=== PATIENT | female | born 1995 | race Caucasian/White ===

== ENCOUNTER 2017-05-11 04:56 | Inpatient (IN) ==
[2017-05-11 02:47] LABS: Amphetamine Screen,Urine Negative ng/mL (Cutoff=1000); Barbiturate Screen,Urine Negative ng/mL (Cutoff=200); Benzodiazepines Screen,Urine Negative ng/mL (Cutoff=200); Cannabinoid Screen,Urine Positive ng/mL (Cutoff = 50); Cocaine Screen,Urine Negative ng/mL (Cutoff= 300); Opiate Screen,Urine Negative ng/mL (Cutoff=300); Phencyclidine Screen,Urine Negative ng/mL (Cutoff=25)
[2017-05-11 02:50] LABS: Basophils % 0.2 %; Eosinophils # 0.4 K/mcL (0.0-0.6); Hematocrit 30.5 % (35.3-44.9); Hemoglobin 9.5 g/dL (11.5-15.4); Lymphocytes # 2.7 K/mcL (0.6-4.6); Lymphocytes % 15.3 %; Mean Corpuscular HGB Conc 31.1 g/dL (31.6-35.5); Mean Corpuscular Hemoglobin 26.7 pg (28.0-33.3); Mean Corpuscular Volume 85.7 fL (83.0-100.0); Mean Platelet Volume 9.4 fL (9.4-12.4); Monocytes # 1.3 K/mcL (0.0-1.3); Monocytes % 7.4 %; Neutrophils # 12.8 K/mcL (1.6-8.9); Platelet Count 350 K/mcL (140-400); Red Blood Count 3.56 M/mcL (3.82-4.97); Red Cell Distribution Width 13.7 % (11.5-14.5); Segmented Neutrophils % 74.1 %
--- NOTE | 2017-05-11 04:17 | OB/GYN History & Physical ---
Date of Encounter: 05/11/17 Time of Encounter: 04:14 Assessment and Plan (1) 39 weeks gestation of Current visit: Yes Status: Acute admitted for delivery (2) Spontaneous rupture of amniotic membranes Current visit: Yes Status: Acute SROM at 0140 clear fluid (3) Marijuana use Current visit: Yes Status: Acute cord stat testing (4) Tobacco use affecting in third trimester, antepartum Current visit: Yes Status: Acute smoking cessation discussed with patient (5) Two vessel umbilical cord in edouard , antepartum Current visit: Yes Status: Acute EFM monitoring History of Present Illness Chief complaint: SROM at 39 weeks gestation HPI: Ms. Florentino is a 21 year old female @ 39w0d presents to labor and delivery with complaints of SROM at 0140. Patient reports clear fluid and +FM. Patient also reports irregular contractions. Patient grossly rupture with + Nitrazine per RN. SVE 2/80/-1. Blood type: B+ Rubella:Non-immune Hep B:Nonreactive RPR:Negative GBS:Negative Past Med Surg Social Fam HX - Past Medical History Source: patient Medical history: no medical history, other Psychiatric history: no psych history - Past Surgical History Surgical History: no surgical history - Social History Smoking Status: Current every day smoker Packs per day: 1 Smokeless Tobacco Status: No Alcohol use: none Drug use: cocaine, marijuana Current living situation: Home - Independent Activity Level: Independent ambulation Recent Out of Country Travel Within the Last 8 Weeks: No Exposure or Possible Exposure to Illness During Travel: No - Family History Mother Age: 52 Living Status: Still Living Hx Family Cardiac Disorders: Yes (htn) Hx Family Respiratory Disorders: Yes (copd) Hx Family Cancer: Yes (colon cancer) Hx Family GI Disorders: No Hx Family Genitourinary Disorders: No Hx Family Endocrine Disorder: Yes (diabetic) Hx Family Musculoskeletal Disorders: No Hx Family Neuromuscular Disorders: No Hx Family Neurologic Disorders: No Hx Family HEENT Disorders: No Hx Family Autoimmune Disorders: Yes (lupus) Hx Family Reproductive Disorders: No Hx Family Psychosocial Disorders: No Hx Family Medical Disorders: No Obstetrical History - Pregnancies : 2 Para: 1 Term: 1 : 0 Ab's: 0 Livin Medications and Allergies No Known Home Drugs 05/11/17 [History] 3 Allergy/AdvReac Type Severity Reaction Status Date / Time No Known Allergies Allergy Verified 01/25/17 16:25 Review of System OB - Constitutional Constitutional ROS IM: no chills, no fever(s), no headache(s) - Cardiovascular Cardiovascular: no chest pain, no leg edema, no palpitations, no pedal edema, no syncope - Respiratory Respiratory: no cough - Gastrointestinal Gastrointestinal: no abdominal pain, no cramping, no diarrhea, no heartburn, no nausea, no vomiting - Genitourinary Genitourinary: vaginal discharge (per HPI), no abnormal vaginal bleeding, no dysuria, no flank pain, no pelvic pain, no urinary frequency, no urinary urgency , no vaginal odor, no vaginal pruritis Exam - Constitutional Constitutional: well developed, well nourished, no acute distress, average body habitus - HEENT HEENT: Normocephaly, Mucus Membranes Moist - Neck Neck exam: full ROM, supple - Lungs Respiratory exam: CTAB - Cardiovascular Cardiovascular exam: RRR, +S1, +S2 - Abdomen Abdomen: Present: bowel sounds normal, gravid, non tender - Extremities Extremities exam: full ROM, normal capillary refill, normal inspection Deep Tendon Reflex Grade: 2+ Normal - Cervix Dilation: 2 Effacement: 80 Station: -1 - Uterus Uterus exam: Present: normal size, normal contour - Anus/Rectum Anus/Rectum: Present: normal perianal skin - Comments Comments: FHR 125 bpm moderate amount of variability +15x15 accels no decels noted. CAt. 1 tracing Contractions 2-3 min apart. Large amount of clear fluid noted. Results Result Diagrams: 05/11/17 02:23 Abnormal lab results WBC 17.3 K/mcL (4.3-11.1) H 05/11/17 02:23 RBC 3.56 M/mcL (3.82-4.97) L 05/11/17 02:23 Hgb 9.5 g/dL (11.5-15.4) L 05/11/17 02:23 Hct 30.5 % (35.3-44.9) L 05/11/17 02:23 MCH 26.7 pg (28.0-33.3) L 05/11/17 02:23 MCHC 31.1 g/dL (31.6-35.5) L 05/11/17 02:23 Neutrophils # 12.8 K/mcL (1.6-8.9) H 05/11/17 02:23 U Marijuana (THC) Screen Positive ng/mL (Cutoff = 50) H 05/11/17 02:23 All other labs normal.
[~2017-05-11 04:56] MED LIST: *HR* Nalbuphine 20 MG/ML AMPUL IVP PRN; Famotidine 20 MG/2 ML VIAL IVP PRN; Naloxone 0.4 MG/ML INJ IVP PRN; Ondansetron 4 MG/2 ML VIAL IVP PRN
[2017-05-11] MEDS ORDERED: Ringers Solution, Lactated 1,000 ML IVC SCH (05:00)
[2017-05-11] MEDS ORDERED: Oxytocin 20 units/ LR 1000 mL 20 UNIT/1,000 ML BAG IVC ONE (05:44)
[2017-05-11] MEDS ORDERED: Oxytocin 20 units/ LR 1000 mL 20 UNIT/1,000 ML BAG IVC SCH ×2 (05:45→14:04)
[2017-05-11] MEDS ORDERED: Ringers Solution, Lactated 1,000 ML ONE (07:53)
[2017-05-11] MEDS ORDERED: *HR* FentaNYL (PF) 100 MCG/2 ML VIAL ONE (08:50)
[2017-05-11] MEDS ORDERED: Bupivacaine-MPF 0.25% 10 ML VIAL ONE (08:50)
--- NOTE | 2017-05-11 09:58 | Anesthesia Evaluation PreOp ---
Date of Encounter: 05/11/17 Time of Encounter: 09:00 - Past History Planned Operation: Labor Epidural Cardiac History: Denies any Significant Hx Pulmonary History: Smoker BUCKSHOT SWAGE OPERATOR History: Denies Any Significant HX Other Medical History: Denies Any Significant HX Anesthesia History: No Prior Anesthetic Complications : Yes (39 weeks) Alcohol Use: none Drug use: cocaine, marijuana Medications and Allergies No Known Home Drugs 05/11/17 [History] 3 Allergy/AdvReac Type Severity Reaction Status Date / Time No Known Allergies Allergy Verified 01/25/17 16:25 - Meds/Allergy Pre-op Review Medications Reviewed: Yes Allergies Reviewed: Yes Beta Blockers on Current Med List: No Anesthesia Results - Labs 05/11/17 02:23 Anesthesia Exam O2 Sat Height 1.57 m Weight 77.9 kg Height: 5'2 Weight: 171 lbs NPO (# of Hours): MN Pain Scale: 0 - HEENT Pupil (Motor): Pupils equal, EOMI Mallampati: II Teeth: Normal Oral Opening: Greater than 3 - BUCKSHOT SWAGE OPERATOR LOC: Oriented BUCKSHOT SWAGE OPERATOR Motor: Normal RUE, Normal LUE, Normal RLE, Normal LLE, Normal Face BUCKSHOT SWAGE OPERATOR Sensory: Normal: RUE, LUE, RLE, LLE, Face - Cardiac Rhythm: Regular Murmur: None JVD: No Carotid Bruit: No - Pulmonary Breath Sounds: bilateral Clear Respiratory Effort: Symmetrical Anesthesia Assess/Plan ASA Score: 2 Modified Alba Scale for Level of Consciousness: Cooperative, oriented, and tranquil Anesthetic Plan: Regional Monitoring Plan: Standard Monitors Recovery Plan: Other (Discussed LE, risks and benefits, agrees to proceed)
--- NOTE | 2017-05-11 10:03 | Anesthesia Procedures ---
Date of Encounter: 05/11/17 Time of Encounter: 09:00 Procedures: Anesthesia - Epidural/Spinal Patient ID/Chart reviewed: Yes Patient examined: Yes OB Eval: Gestational age: 39 weeks OB Eval: : 2 OB Eval: Hx Para: 1 OB Eval: Dilated at (cm): 4 OB Eval: Contractions: Non-stressed pattern Consent Obtained: Yes Supplemental Oxygen: None/Room Air Site Prep: Aseptic Technique, Sterile prep and drape, Povidone-Iodine 1% Patient position: upright Local Anesthetic: Lidocaine 1% Amount of Local Anesthetic used: 5 Touhy Needle Gauge: 19 Touhy Needle Depth (cm): 4 Catheter Depth at Skin (cm): 5 Test Dose Result: Negative Loading Dose: Fentanyl (mcg): 100 Loading Dose: Other: Marcaine 20cc 0.125% Loading Dose Administered: Thru Touhy Needle Infusion Med: 0.125% Bupivacaine w/ 2 mcg/ml Fentanyl Infusion Rate (mls/hr): [address]: Tegaderm Interspace Used: L4-L5 Loss of Resistance (SUSAN): Yes Blood: No CSF: Yes Paresthesia: No Vitals + FHT's: O2 Sat Height 1.57 m Weight 77.9 kg
[2017-05-11] MEDS ORDERED: Bupivacaine-MPF 0.25% 10 ML VIAL EP ONE (10:56)
[2017-05-11] MEDS ORDERED: *HR* FentaNYL (PF) 100 MCG/2 ML VIAL EP ONE (10:56)
[2017-05-11] MEDS ORDERED: Epidural Premix (fent/bupiv) 110 ML EP SCH (11:00)
--- NOTE | 2017-05-11 11:19 | OB/GYN Procedure Note ---
Delivery - Delivery Date: 05/11/17 Provider: Keila Al Intrapartum events: none Delivery induction: none Delivery augmentation: pitocin Delivery monitor: external FHT, external uterine Anesthesia: epidural Estimated Blood Loss: 100 - (s) Infant A Delivery Date: 05/11/17 Delivery Time: 10:52 Presentation: vertex, compound Position: OA Route of delivery: Gender: Male Viability: Viable Pounds: 7 Ounces: 8 Weight Gram: 3405 kg at 1 minute: 8 at 5 mins: 9 Shoulder Dystocia: not encountered Specimens collected: cord blood Placenta: spontaneous Cord: 2 umbilical vessels - Repair Episiotomy: none Laceration Description: None - Complications Delivery complications: none Delivery comments: Patient progressed to complete and under maternal effort delivered a live male, vertex, OA via . Head was delivered and no nuchal cord was discovered. The shoulders delivered with a compound presentation and the body easily followed. The baby was placed immediately on the maternal abdomen. After the cord stopped pulsating, it was clamped and cut. The placenta delivered spontaneously, was inspected and found to be intact with a 2-vessel cord. No lacerations were discovered. EBL 100. Mother and baby stable and bonding in labor and delivery. Naomi Faulkner, [id number] as present and assisted with the delivery. - Disposition Mom disposition: stable in LDR disposition: stable in LDR
[2017-05-11] MEDS ORDERED: Measles/Mumps/Rubella Vacc 0.5 ML VIAL SQ PRN (14:04)
[2017-05-11] MEDS ORDERED: Ibuprofen 600 MG TABLET PO PRN (14:04)
[2017-05-11] MEDS ORDERED: Benzocaine/Menthol 56 GM AEROSOL SPRAY TP PRN (14:04)
[2017-05-11] MEDS ORDERED: Acetaminophen 325 MG TABLET PO PRN (14:04)
[2017-05-12 05:09] LABS: Basophils % 0.3 %; Eosinophils # 0.2 K/mcL (0.0-0.6); Eosinophils % 1.5 %; Hematocrit 28.2 % (35.3-44.9); Immature Granulocytes % 0.7 % (0-4); Lymphocytes % 19.5 %; Mean Corpuscular HGB Conc 31.9 g/dL (31.6-35.5); Mean Corpuscular Hemoglobin 26.6 pg (28.0-33.3); Mean Corpuscular Volume 83.4 fL (83.0-100.0); Mean Platelet Volume 9.5 fL (9.4-12.4); Monocytes % 6.9 %; Neutrophils # 10.8 K/mcL (1.6-8.9); Platelet Count 291 K/mcL (140-400); Red Blood Count 3.38 M/mcL (3.82-4.97); Segmented Neutrophils % 71.1 %
--- NOTE | 2017-05-12 08:46 | Discharge Summary ---
Date of Encounter: 05/12/17 Time of Encounter: 08:44 - Discharge Diagnosis (1) 39 weeks gestation of Priority: Secondary Status: Acute (2) Spontaneous rupture of amniotic membranes Priority: Secondary Status: Acute (3) Marijuana use Priority: Secondary Status: Acute (4) Tobacco use affecting in third trimester, antepartum Priority: Secondary Status: Acute (5) Two vessel umbilical cord in edouard , antepartum Priority: Secondary Status: Acute (6) Status post vaginal delivery Priority: Primary Status: Acute Comments: Continue routine care discharge home today follow up with Dr. Wilcox in 4-6 weeks - Discharge Medications Home Medications: Acetaminophen [Tylenol] 650 mg PO Q6HR PRN tablet 05/12/17 [Rx] Benzocaine/Menthol [place] [Dermoplast [place]] 1 appl TP QID PRN aerosol 05/12/17 [Rx] Ibuprofen [Motrin] 600 mg PO Q6HR PRN tablet 05/12/17 [Rx] Vit/FA 1 each PO DAILY tablet 05/12/17 [Rx] Allergies/Adverse Reactions: 3 Allergy/AdvReac Type Severity Reaction Status Date / Time No Known Allergies Allergy Verified 01/25/17 16:25 Data Procedures and tests throughout hospitalization: Laboratory Tests 05/11/17 05/11/17 05/12/17 02:23 02:23 04:19 WBC 17.3 H 15.2 H RBC 3.56 L 3.38 L Hgb 9.5 L 9.0 L Hct 30.5 L 28.2 L MCV 85.7 83.4 MCH 26.7 L 26.6 L MCHC 31.1 L 31.9 RDW 13.7 14.0 Plt Count 350 291 MPV 9.4 9.5 Immature Gran % 1.0 0.7 Seg Neutrophils % 74.1 71.1 Lymphocytes % 15.3 19.5 Monocytes % 7.4 6.9 Eosinophils % 2.0 1.5 Basophils % 0.2 0.3 Neutrophils # 12.8 H 10.8 H Lymphocytes # 2.7 3.0 Monocytes # 1.3 1.0 Eosinophils # 0.4 0.2 Basophils # 0.0 0.0 Urine Opiates Screen Negative Ur Barbiturates Screen Negative Ur Phencyclidine Scrn Negative Ur Amphetamines Screen Negative U Benzodiazepines Scrn Negative Urine Cocaine Screen Negative U Marijuana (THC) Screen Positive H Labs on day of discharge: Labs from last 24 hours 05/12/17 04:19 WBC 15.2 H RBC 3.38 L Hgb 9.0 L Hct 28.2 L MCV 83.4 MCH 26.6 L MCHC 31.9 RDW 14.0 Plt Count 291 MPV 9.5 Immature Gran % 0.7 Seg Neutrophils % 71.1 Lymphocytes % 19.5 Monocytes % 6.9 Eosinophils % 1.5 Basophils % 0.3 Neutrophils # 10.8 H Lymphocytes # 3.0 Monocytes # 1.0 Eosinophils # 0.2 Basophils # 0.0 Date of admission: 05/11/17 04:56 Primary care physician: PCP NONE Consults: 05/11/17 14:04 Consult to Press Washer [CONS] Routine Comment: Vaginal delivery, consult needed 05/11/17 16:02 Consult to Behavioral Psychologist (W&C) [CONS] Routine Reason For Exam: Reason for SW Consult: hx drug use in preg/ + thc on admission UDS Discharging clinician: Shakira Acosta Anticipated date of discharge: 05/12/17 - Patient Status Disposition: Home, Self-Care Condition: Good Functional capacity at discharge: independent ambulation - Discharge Instructions Follow Up With: NONE,PCP [Primary Care Provider] - Jaylen Wilcox MD [Partnered Physician] - - Diet and Activity Activity: increase activity as tolerated Diet: regular diet Hospital Course Reason for admission: rupture of membranes Delivery: Episiotomy: none Laceration: none Other procedures: none complications: none Discharge diagnosis: IUP at term delivered baby: male (bottle feeding) Time spent discussing smoking cessation with patient: 3 to 10 minutes Time Attestation: Total time spent providing and/or coordinating discharge services: Exam - Constitutional Vitals: Temp Pulse Resp BP Pulse Ox 97.9 F 74 16 108/66 99 05/12/17 02:45 05/12/17 02:45 05/12/17 02:45 05/12/17 02:45 05/12/17 02:45 General appearance IM: A&O X 3, pleasant, answers questions appropriately - Respiratory Respiratory exam: Present: CTAB - Cardiovascular Cardiovascular exam IM: Present: RRR, +S1, +S2 - GI/Abdominal GI/Abdominal exam IM: normal bowel sounds - Uterine Tone: Firm Uterus Position: 1 Finger Below Umbilicus, Midline - Extremities Exam Extremities exam IM: Present: full ROM, normal capillary refill, normal inspection - Neurological Exam Neurological exam: alert, oriented X3, reflexes normal
[2017-05-12] MEDS ORDERED: Prenatal Vit/FA 1 EACH TABLET PO SCH (09:00)
[2017-05-12 09:38] VITALS: BP 126/73
== END 2017-05-12 11:00 | disposition home or self-care (01) | DRG 560 ==
LOC: 1NENULAB → 1NENUOBS 14:06
PROVIDERS: ADMIT Advanced Practice Midwife; ATTEND Advanced Practice Midwife